=== PATIENT | male | born 1995 | race Caucasian/White ===

== ENCOUNTER 2021-06-12 10:27 | Emergency (ER) | payer SELFPAY ==
[2021-06-12 11:19] VITALS: BP 124/73; PULSE 73; RESP 16; TEMP 36.9; O2SAT 99; BMI 19.0
--- NOTE | 2021-06-12 11:39 | HMH.EDUTC ---
[facility] [place] Clinical Impression: Hand, foot and mouth disease (HFMD) Disposition: Home, Self-Care Condition on Discharge: Good Instructions: Hand, Foot, and Mouth Disease Additional Instructions: This is very contagious, stay away from people to help keep from spreading the virus Oatmeal baths may help with rash Over the counter Motrin and/or Tylenol may help with fever and pain Return if needed Straight to ER if any life threatening symptoms Referrals: Provider,Referral, MD [Primary Care Provider] - As needed Forms: Work/School Release Time of Disposition: 11:49 Medical Decision Making - Sriram Inquiry Pt receiving controlled substance: No Sriram was queried for this patient: No Vital Signs: 06/12/21 11:19 Temperature 98.5 F Temperature Source Oral Pulse Rate [Left] 73 Respiratory Rate 16 Blood Pressure [Right Arm] 124/73 Blood Pressure Mean [Right Arm] 90 02 Sat by Pulse Oximetry 99 [facility] [place] - General Stated complaint: possible HFM, exposure Time Seen by Provider: 06/12/21 11:39 Mode of Arrival: Ambulatory Source of Information: Patient Limitations: No Limitations Description of Symptoms (Recalled from Triage Doc. by RN): pt c/o a speckled rash on his hands, feet and in his mouth. HEENT Symptoms (Recalled from RN notes): No Resp Symptoms (Recalled from RN notes): No Skin Symptoms (Recalled from RN notes): Yes (rash on hands, feet and mouth) MS Symptoms (Recalled from RN notes): No Functional Status (Recalled from RN notes): na - History of Present Illness Provider Complaint: Patient states that his kids recently had hand foot and mouth and he started breaking out on Wednesday on his hands, face, mouth and both feet States that work wanted him to come in and get looked at to make sure that is what it is States that rash has improved some since Wednesday - Related Data Previous Rx's Medication Instructions Recorded Azithromycin [Zithromax 250mg 500 mg PO DAILY #8 tab 02/15/19 tab] Allergies Allergy/AdvReac Type Severity Reaction Status Date / Time No Known Allergies Allergy Unverified 08/03/17 15:12 - Worker's Comp Is this a Worker's Comp case?: No [facility] History - Hepatitis A Screen Drug use history?: No High risk sexual behaviors?: No History of sexually transmitted infection?: No Currently employed?: No Childcare worker?: No Do you have indoor plumbing?: Yes Do you have electricity?: Yes Attestation statement:: This patient has been screened for Hepatitis A risk factors. I have reviewed the patient's past medical history: Yes Medical History: Denies:: Diabetes Mellitus Type 1, Diabetes Mellitus Type 2 Amputation: No - Social History Alcohol Intake: never Occupational Status: employed ROS Obtained: Yes All systems reviewed & no additional complaints, Yes Systems reviewed as appropriate & no additional complaints - Constitutional Constitutional: Reports system reviewed and no additional complaints, except as docu, Reports fever(s) - ENT Ears, Nose, Mouth, and Throat: Reports system reviewed and no additional complaints, except as docu - Cardiovascular Cardiovascular: Reports system reviewed and no additional complaints, except as docu - Gastrointestinal Gastrointestingal: Reports: system reviewed and no additional complaints, except as docu - Integumentary/Breasts Skin/Breast: Reports system reviewed and no additional complaints, except as docu, Reports rash Physical Exam - General General appearance: alert, in no apparent distress - Respiratory Respiratory exam: Present: normal lung sounds bilaterally. Absent: respiratory distress - Cardiovascular Cardiovascular exam: Present: regular rate, normal rhythm. Absent: JVD - Neurological Exam Neurological exam: Present: alert, oriented X3 - Skin Skin exam: Present: rash - Expanded Skin Exam Type of lesion: Present: rash Distribution: involves palms/soles, face
[2021-06-12 12:07] VITALS: BP 124/73; PULSE 73; RESP 16; TEMP 36.9
== END 2021-06-12 12:08 | disposition home or self-care (01) ==
PROVIDERS: Emergency Provider Nurse Practitioner
DX: B08.4 Enteroviral vesicular stomatitis with exanthem (principal)
CPT/HCPCS: 99202; G0463

== ENCOUNTER 2021-08-30 12:47 | Emergency (ER) | payer SELFPAY ==
[2021-08-30 15:41] VITALS: BP 109/71; PULSE 97; RESP 18; TEMP 36.9; O2SAT 98; BMI 19.0
--- NOTE | 2021-08-30 16:10 | HMH.EDUTC ---
[facility] [place]ression: Exposure to COVID-19 virus Migraine Qualifiers: Migraine type: with aura Status migrainosus presence: without status migrainosus Intractability: not intractable Qualified Code(s): G43.109 - Migraine with aura, not intractable, without status migrainosus Disposition: Home, Self-Care Condition on Discharge: Good Instructions: Migraine -- Adult, DI for COVID-19 (Suspected or Confirmed ), Preventing the Spread of Coronavirus Discharge Instructions Additional Instructions: Go home and rest. Drink plenty of fluids. Take tylenol or ibuprofen for pain or fever. Don't take over 800 mg of ibuprofen every 8 hours. Doing that will hurt your liver and kidneys. Take the medications as directed. Follow up with your regular doctor. GO TO THE ER FOR ANY WORSENING SYMPTOMS Quarantine until you know the results of your covid-19 test. If it is positive, the health department should call you and give you further instructions about your length of Quarantine and other things. Notify your school or workplace of your results and follow their instructions regarding return to work/school. Referrals: Provider,Referral, [Primary Care Provider] - Forms: Work/School Release Time of Disposition: 16:20 Medical Decision Making - Medical Records Medical records reviewed: No: I reviewed the patient's medical records. - Sriram Inquiry Pt receiving controlled substance: No Vital Signs: 08/30/21 15:41 08/30/21 16:55 Temperature 98.4 F 98.4 F Temperature Source Oral Pulse Rate 97 H Pulse Rate [Left] 97 H Respiratory Rate 18 18 Blood Pressure 109/71 L Blood Pressure [Right Arm] 109/71 L Blood Pressure Mean [Right Arm] 83 02 Sat by Pulse Oximetry 98 - Lab Data Lab Results 08/30/21 15:32: Group A Strep Rapid Negative Orders (Tests/Meds): ED MEDICATIONS Discontinued Medications Generic Name Dose Route Start Last Admin Trade Name Julieta PRN Reason Stop Dose Admin Ketorolac Tromethamine 30 mg 08/30/21 16:11 08/30/21 16:22 Ketorolac 60mg/2ml Vial IM 08/30/21 16:12 30 mg ONCE ONE Administration Methylprednisolone Sodium Succinate 125 mg 08/30/21 16:11 08/30/21 16:22 Methylprednisolone Sod Succ 125mg Vial IM 08/30/21 16:12 125 mg ONCE ONE Administration Promethazine HCl 25 mg 08/30/21 16:11 08/30/21 16:22 Promethazine Hcl 25mg/Ml 1ml Vial IM 08/30/21 16:12 25 mg ONCE ONE Administration Sodium Chloride 25 ml 08/30/21 16:11 08/30/21 16:14 Sodium Chloride 0.9% 25ml Bag IV 08/30/21 16:12 Not Given ONCE ONE ORDERS Category Date Time Status Strep Screen Confirmation Stat Micro 08/30/21 15:32 Received [facility] [place] - General Stated complaint: migraine Time Seen by Provider: 08/30/21 16:16 Mode of Arrival: Ambulatory Source of Information: Patient Limitations: No Limitations Description of Symptoms (Recalled from Triage Doc. by RN): PT C/O A MIGRAINE X2 DAYS AND N/V. HEENT Symptoms (Recalled from RN notes): Yes (MIGRAINE) Resp Symptoms (Recalled from RN notes): No Skin Symptoms (Recalled from RN notes): No MS Symptoms (Recalled from RN notes): No Functional Status (Recalled from RN notes): WNL - History of Present Illness Provider Complaint: He states that he has had a migraine headache for the past 2 days. He has also had a scratchy sore throat. He denies any cough or congestion. He has not been vaccinated against covid-19. He states that he really thinks that he is just having a migraine and does not have covid-19 or other illness. - Related Data Previous Rx's Medication Instructions Recorded Azithromycin [Zithromax 250mg 500 mg PO DAILY #8 tab 02/15/19 tab] Allergies Allergy/AdvReac Type Severity Reaction Status Date / Time No Known Allergies Allergy Unverified 08/03/17 15:12 - Worker's Comp Is this a Worker's Comp case?: No [facility] History - Hepatitis A Screen Drug use history?
[2021-08-30 16:53] LABS: Strep Scrn Group A (Rapid) Negative (Negative)
[2021-08-30 16:55] VITALS: BP 109/71; PULSE 97; RESP 18; TEMP 36.9
== END 2021-08-30 16:56 | disposition home or self-care (01) ==
PROVIDERS: Emergency Provider Nurse Practitioner Family
DX: G43.109 Migraine with aura, not intractable, without status migrainosus (principal); U07.1 COVID-19
CPT/HCPCS: 87430; 96372; 99202; C9803; G0463; U0003; U0005

== ENCOUNTER 2022-03-20 16:17 | Emergency (ER) | payer SELFPAY ==
[2022-03-20 16:35] VITALS: BP 126/75; PULSE 71; RESP 18; TEMP 36.7; O2SAT 98; BMI 18.0
--- NOTE | 2022-03-20 16:47 | HMH.EDUTC ---
[facility] [place] Clinical Impression: Exposure to COVID-19 virus Disposition: Home, Self-Care Condition on Discharge: Good Instructions: DI for COVID-19 (Suspected or Confirmed ), Preventing the Spread of Coronavirus Discharge Instructions Additional Instructions: *Monitor Temp, Over the counter Motrin or Tylenol as directed/as needed Tylenol every 4 hours and Motrin every 6 hours (as long as your family doctor has told you that you can take it) for fever or pain. and straight to ER if unable to lower temp less than 101.0 after medication given *Warm salt water gargles may help to soothe the throat *Throat Lozenges *Warm fluids like tea with honey may help to soothe the throat *Sleep elevated *Humidifier/Vaporizer Follow up IMMEDIATELY for new or worsening symptoms or no Noticeable improvement over the next 48-72 hours. 911 for difficulty breathing or swallowing You were tested for today for COVID19 your test result should be back in the next 24-48 hours, you may check your results on the [facility] My Health Portal Make sure to take your Vitamins Vit. C Vit D and Zinc if you can take them Referrals: Provider,Referral, [Primary Care Provider] - As needed Forms: Work/School Release Medical Decision Making - Sriram Inquiry Pt receiving controlled substance: No Sriram was queried for this patient: No Vital Signs: 03/20/22 16:35 Temperature 98.1 F Temperature Source Oral Pulse Rate [Right Brachial] 71 Respiratory Rate 18 Blood Pressure [Right Arm] 126/75 Blood Pressure Mean [Right Arm] 92 Blood Pressure Source [Right Arm] Automatic Cuff Blood Pressure Position [Right Arm] Sitting 02 Sat by Pulse Oximetry 98 Oxygen Delivery Method Room Air Orders (Tests/Meds): ORDERS Category Date Time Status Covid-19 Nasal PCR ([facility]) Routine Lab 03/20/22 16:38 Received [facility] [place] - General Stated complaint: Exposed Covid test,Sore throat, Time Seen by Provider: 03/20/22 16:48 Mode of Arrival: Ambulatory Source of Information: Patient Limitations: No Limitations Description of Symptoms (Recalled from Triage Doc. by RN): PATIENT C/O HEADACHE AND CONGESTION. EXPOSED TO COVID LAST WEEK HEENT Symptoms (Recalled from RN notes): Yes Resp Symptoms (Recalled from RN notes): Yes Skin Symptoms (Recalled from RN notes): No MS Symptoms (Recalled from RN notes): No Functional Status (Recalled from RN notes): WNL - History of Present Illness Provider Complaint: Patient states that he was around someone last week that was positive for COVID states that now he has started having some symptoms States that he has been feeling achy all over and nasal congestion and worried that he may have it now too - Related Data Allergies Allergy/AdvReac Type Severity Reaction Status Date / Time No Known Allergies Allergy Verified 03/20/22 16:45 - Worker's Comp Is this a Worker's Comp case?: No [facility] History - Hepatitis A Screen Attestation statement:: This patient has been screened for Hepatitis A risk factors. I have reviewed the patient's past medical history: Yes Medical History: Denies:: Diabetes Mellitus Type 1, Diabetes Mellitus Type 2 Amputation: No - Social History Alcohol Intake: never Occupational Status: other ROS Obtained: Yes All systems reviewed & no additional complaints, Yes Systems reviewed as appropriate & no additional complaints - Constitutional Constitutional: Reports system reviewed and no additional complaints, except as docu, Reports body ache, Reports chills, Reports fever(s), Reports headache(s) - ENT Ears, Nose, Mouth, and Throat: Reports system reviewed and no additional complaints, except as docu, Reports nasal congestion - Cardiovascular Cardiovascular: Reports system reviewed and no additional complaints, except as docu - Respiratory Respiratory: Reports system reviewed and no additional complaints, except as docu - Gastrointestinal Gastrointestingal: Reports: system reviewed and
[2022-03-20 16:53] VITALS: BP 126/75; PULSE 71; RESP 18; TEMP 36.7; O2SAT 98
== END 2022-03-20 16:58 | disposition home or self-care (01) ==
PROVIDERS: Emergency Provider Nurse Practitioner
DX: U07.1 COVID-19 (principal)
CPT/HCPCS: 99212; C9803; G0463; U0003; U0005

== ENCOUNTER 2022-10-12 14:41 | Emergency (ER) | payer BC, SELFPAY ==
[2022-10-12 14:45] VITALS: BP 132/80; PULSE 68; RESP 21; TEMP 36.7; O2SAT 99; BMI 19.0
--- NOTE | 2022-10-12 15:09 | EXP.UTC ---
Discharge Plan Disposition Patient Disposition: Home, Self-Care Condition: Good Prescriptions Prescriptions: New gentamicin 0.3 % drops 1 - 2 drp ophthalmic (eye) Q4H 7 Days Qty: 5 0RF Referrals Follow up/Referrals: Provider,Referral, [Primary Care Provider] - See instructions Activity Restrictions/Add. Instructions Additional Instructions/Restrictions: Wash hands well before and after applying drops to eye Follow up with Eye Doctor if no improvement or any worsening of symptoms Clean eyes with warm water and baby shampoo Use drops as directed Follow up with your Family Doctor if needed Clinical Impressions Clinical Impression: Conjunctivitis Stand Alone Forms Stand Alone Forms: Work/School Release Instructions Patient Instructions: Conjunctivitis, DI for Conjunctivitis Discharge ED Provider: Kassy Anaya [facility] General Stated complaint: possible pink eye Mode of Arrival: Ambulatory Source of Information: Patient Limitations: No Limitations Time Seen by Provider: 10/12/22 15:09 Description of Symptoms (Recalled from Triage Doc. by RN): PATIENT C/O REDNESS AND DRAINAGE TO LEFT EYE X 2 DAYS. HE STATES HIS SON RECENTLY HAD PINK EYE HEENT Symptoms (Recalled from RN notes): Yes Resp Symptoms (Recalled from RN notes): No Skin Symptoms (Recalled from RN notes): No MS Symptoms (Recalled from RN notes): No Functional Status (Recalled from RN notes): WNL History of Present Illness Provider Complaint: Patient states that child recently had the pink eye States that for the last 2 days he has been having redness, drainage and this morning his left eye was matted shut States that this evening he was still having redness and drainage so he came in to get it checked Related Data Previous Rx's Medication Instructions Recorded gentamicin 0.3 % eye drops 1 - 2 drp ophthalmic (eye) Q4H 7 10/12/22 days #5 mL Allergies Allergy/AdvReac Type Severity Reaction Status Date / Time No Known Allergies Allergy Verified 03/20/22 16:45 Worker's Comp Is this a Worker's Comp case?: No [facility] Disclaimer: The information contained in this section may have been updated after the patient was seen, as this information can be updated by other users. Social History Smoking Status: Unknown if ever smoked alcohol intake: never current occupational status: other Travel in the last 8 weeks: None current occupational exposures/hazards: No ROS Obtained: Yes All systems reviewed & no additional complaints except as documented and Yes Systems reviewed as appropriate & no additional complaints except as documented Constitutional Constitutional: Reports system reviewed and no additional complaints, except as documented and Reports as per HPI Eyes Eyes: Reports system reviewed and no additional complaints, except as documented, Reports as per HPI, Reports eye discharge and Reports irritation ENT Ears, Nose, Mouth, and Throat: Reports system reviewed and no additional complaints, except as documented and Reports as per HPI Physical Exam General General appearance: alert and in no apparent distress Eye Eye exam: Present conjunctival redness (left) and discharge (left with matting noted in lashes) Respiratory Respiratory exam: Present normal lung sounds bilaterally; Absent respiratory distress or wheezes Cardiovascular Cardiovascular exam: Present regular rate, normal rhythm and normal heart sounds Abdominal Exam Abdominal exam: Present soft and normal bowel sounds; Absent distention or tenderness Neurological Exam Neurological exam: Present alert, oriented X3 and normal gait Medical Decision Making Sriram Inquiry Pt receiving controlled substance: No Sriram was queried for this patient: No Vital Signs: 10/12/22 14:45 Temperature 98.1 F Temperature Source Oral Pulse Rate [Left Brachial] 68 Respiratory Rate 21 Blood Pressure [Left Arm] 132/80 Blood Pressure Mean [Left Arm] 97 Blood Pressure So
[2022-10-12 15:16] VITALS: BP 132/80; PULSE 68; RESP 21; TEMP 36.7; O2SAT 99
== END 2022-10-12 15:19 | disposition home or self-care (01) ==
PROVIDERS: Emergency Provider Nurse Practitioner
DX: H10.9 Unspecified conjunctivitis (principal)
CPT/HCPCS: 99212; 99213; G0463

== ENCOUNTER 2023-04-26 04:56 | Emergency (ER) | payer OTHER, SELFPAY ==
[2023-04-26 05:09] VITALS: BP 127/91; PULSE 80; RESP 14; TEMP 36.5; O2SAT 99; BMI 16.2
[2023-04-26 05:22] VITALS: BP 126/88; PULSE 73; RESP 18; TEMP 36.7; O2SAT 97
--- NOTE | 2023-04-26 05:42 | HMH.EDGENADL ---
Discharge Plan Disposition Patient Disposition: Home, Self-Care Prescriptions Prescriptions: New hydroxyzine pamoate [Vistaril] 25 mg capsule 25 mg PO QID PRN (Reason: itching) Qty: 30 0RF permethrin 5 % cream 1 applic topical Q14D Qty: 60 0RF Rx Instructions: apply second treatment 14 days after first treatment if live lice remain Activity Restrictions/Add. Instructions Additional Instructions/Restrictions: Please take Vistaril as prescribed as needed for itching. Please use topical hydrocortisone as needed. Please apply permethrin once over your entire body and leave on your skin for 12 hours before showering. Apply again in 2 weeks if symptoms remain. Please take Benadryl as needed. Please follow-up with your primary care provider. Please return to the emergency department if you develop any new or worsening symptoms or become concerned for your health. Clinical Impressions Clinical Impression: Pruritic dermatitis Discharge ED Provider: Canelo Velázquez Adult HPI General Chief complaint: Skin/Abscess/Foreign Body Stated complaint: Rash on both legs & arms Time Seen by Provider: 04/26/23 05:00 Mode of Arrival: Family Vehicle Source of Information: Patient Limitations: No Limitations Description of Symptoms (Recalled from ER Triage Doc. by RN): 28 yo male presents with BUE and BLE RASH History of Present Illness HPI narrative: 28-year-old male previously healthy presents with a itchy rash on the bilateral lower extremities and abdomen. He reports that it started yesterday and has been worsening. He denies any new exposures. Specifically denies being outside or in the [place] recently. He denies any new detergents or clothes or changes in habits or location. No fevers chills, no involvement of the mucous membranes, no difficulty breathing, no history of significant allergies. He reports concerns that he might have bird mites though does not have a noted exposure. Related Data Previous Rx's Medication Instructions Recorded hydroxyzine pamoate 25 mg capsule 25 mg PO QID PRN itching #30 caps 04/26/23 (Vistaril) permethrin 5 % topical cream 1 applic topical Q14D 2 doses #60 04/26/23 grams Allergies Allergy/AdvReac Type Severity Reaction Status Date / Time No Known Allergies Allergy Verified 03/20/22 16:45 [facility] Disclaimer: The information contained in this section may have been updated after the patient was seen, as this information can be updated by other users. Social History (Updated 10/12/22 @ 15:17 by Kassy Anaya APRN) Smoking Status: Unknown if ever smoked alcohol intake: never current occupational status: other Travel in the last 8 weeks: None current occupational exposures/hazards: No ROS Obtained: Yes All systems reviewed & no additional complaints except as documented Physical Exam General General appearance: alert and in no apparent distress Head Head exam: atraumatic and normocephalic Eye Eye exam: Present normal appearance, PERRL and EOMI ENT ENT exam: Present normal oropharynx and normal external ear exam Neck Neck exam: Present normal inspection and full ROM Chest Chest inspection: Present normal inspection and symmetric chest wall rise; Absent tenderness Respiratory Respiratory exam: Present normal lung sounds bilaterally; Absent respiratory distress Cardiovascular Cardiovascular exam: Present regular rate and normal rhythm Abdominal Exam Abdominal exam: Present soft; Absent distention, tenderness or guarding Extremities Exam Extremities exam: Present normal inspection; Absent edema or joint swelling Back Exam Back exam: Present normal inspection; Absent tenderness Neurological Exam Neurological exam: Present alert and oriented X3; Absent motor sensory deficit Psychiatric Psychiatric exam: Present normal affect and normal mood Skin Skin exam: Present warm, dry, normal color and rash (Scattered blanching erythematous eruption over
== END 2023-04-26 05:33 | disposition home or self-care (01) ==
LOC: ER 05:31
PROVIDERS: Emergency Provider Emergency Medicine
DX: L29.8 Other pruritus (principal)
CPT/HCPCS: 99283